=== PATIENT | male | born 2000 | race Caucasian/White ===

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

== ENCOUNTER 2020-10-13 00:11 | Emergency (ER) | payer BC ==
--- NOTE | 2020-10-13 00:46 | EDM.PDOC ---
ED HPI GENERAL MEDICAL PROBLEM - General Chief Complaint: Abdominal Pain Stated Complaint: UPPER ABD PAIN Time Seen by Provider: 10/13/20 00:31 Source of Information: Reports: Patient History Limitations: Reports: No Limitations - History of Present Illness INITIAL COMMENTS - FREE TEXT/NARRATIVE: Malik is a 20-year-old male presenting to the ED for evaluation of acute onset of epigastric discomfort that started when he was laying in bed tonight. Patient reports that he has had a normal bowel movement today. He denies any fever, chills, nausea or vomiting, diarrhea or constipation. The patient did reportedly eat pizza today around 5 PM. The pain started when he was laying down tonight. He is not experience this pain before. He cannot really describe what the pain feels like but denies that it is sharp or stabbing or pressure sensation. Patient denies having any flatus. He has not eaten any new foods. Did drink chocolate milk tonight. He denies any use of peppermint, caffeine, alcohol, or spicy foods other than the pizza. He denies any strenuous activity. - Related Data Allergies Allergy/AdvReac Type Severity Reaction Status Date / Time No Known Allergies Allergy Verified 10/13/20 00:28 Home Meds: Home Meds NK [No Known Home Meds] 10/13/20 [History] Past Medical History Dermatologic History: Reports: Other (See Below) Other Dermatologic History: acne - Infectious Disease History Infectious Disease History: Reports: Mononucleosis - Past Surgical History HEENT Surgical History: Reports: Adenoidectomy, Tonsillectomy GI Surgical History: Reports: Hernia Repair/Other Social & Family History - Tobacco Use Tobacco Use Status *Q: Never Tobacco User - Caffeine Use Caffeine Use: Reports: Soda - Recreational Drug Use Recreational Drug Use: No ED ROS GENERAL - Review of Systems Review Of Systems: See Below Constitutional: Reports: No Symptoms HEENT: Reports: No Symptoms Respiratory: Reports: No Symptoms Cardiovascular: Reports: No Symptoms Endocrine: Reports: No Symptoms GI/Abdominal: Reports: Abdominal Pain (Epigastric pain) : Reports: No Symptoms Musculoskeletal: Reports: No Symptoms Skin: Reports: No Symptoms Neurological: Reports: No Symptoms Psychiatric: Reports: No Symptoms Hematologic/Lymphatic: Reports: No Symptoms Immunologic: Reports: No Symptoms ED EXAM, GI/ABD - Physical Exam Exam: See Below Exam Limited By: No Limitations General Appearance: Alert, No Apparent Distress Throat/Mouth: Normal Inspection, Normal Oropharynx, Normal Voice, No Airway Compromise Head: Atraumatic, Normocephalic Neck: Normal Inspection, Supple Respiratory/Chest: No Respiratory Distress, Lungs Clear, Normal Breath Sounds Cardiovascular: Normal Peripheral Pulses, Regular Rate, Rhythm, No Murmur GI/Abdominal Exam: Normal Bowel Sounds, Soft, Tender Extremities: Normal Inspection, Normal Range of Motion, Normal Capillary Refill Neurological: Alert, Oriented, Normal Cognition, No Motor/Sensory Deficits Psychiatric: Normal Affect, Normal Mood Skin Exam: Warm, Dry, Intact, Normal Color Lymphatic: No Adenopathy Course - Vital Signs Last Recorded V/S: Last Vital Signs Temp 36.6 C 10/13/20 00:31 Pulse 57 L 10/13/20 00:31 Resp 15 10/13/20 00:31 BP 126/77 10/13/20 00:31 Pulse Ox 100 10/13/20 00:31 - Orders/Labs/Meds Orders: Active Orders 24 hr Category Date Time Status Abdomen 2V AP Flat Upright [CR] Stat Exams 10/13/20 00:39 Taken LACTIC ACID [CHEM] Stat Lab 10/13/20 00:51 Received Labs: Laboratory Tests 10/13/20 10/13/20 Range/Units 00:51 00:51 WBC 9.1 (4.5-11.0) K/uL RBC 5.37 (4.30-5.90) M/uL Hgb 15.1 H (12.0-15.0) g/dL Hct 44.0 (40.0-54.0) % MCV 82 (80-98) fL MCH 28 (27-31) pg MCHC 34 (32-36) % Plt Count 245 (150-400) K/uL Neut % (Auto) 66.8 H (36-66) % Lymph % (Auto) 22.3 L (24-44) % [place] % (Auto) 8.2 H (2-6) % Eos % (Auto) 2.2 (2-4) % Baso % (Auto) 0.5 (0-1) % Sodium 144 (140-148) mmol/L Potassium 4.1 (3.6-5.2) mmol/L Chloride 107 (100-108) mmol/L Carbon Dioxide 30 (21-32) mmol/L Anion Gap 6.9 (5.0-14.0) mmol/L BUN 22 H (7-18) mg/dL Creatinine 1.2 (0.8-1.3) mg/dL Est Cr Clr Drug Dosing 112.14 mL/min Estimated GFR (MDRD) > 60 (>60) Glucose 100 (74-106) mg/dL Calcium 8.5 (8.5-10.1) mg/dL Total Bilirubin 0.4 (0.2-1.0) mg/dL AST 19 (15-37) U/L ALT 25 (12-78) U/L Alkaline Phosphatase 72 (46-116) U/L Total Protein 6.3 L (6.4-8.2) g/dL Albumin 3.5 (3.4-5.0) g/dL Globulin 2.8 (2.3-3.5) g/dL Albumin/Globulin Ratio 1.2 (1.2-2.2) Lipase 80 (73-393) U/L - Radiology Interpretation Free Text/Narrative:: Reviewed the two-view x-ray of the abdomen showing a copious amount of colonic flatus and stool. There is no evidence for free air. There is no air-fluid levels. There is no evidence for obstruction. - Re-Assessments/Exams Free Text/Narrative Re-Assessment/Exam: 10/13/20 01:19 I reviewed the patient's labs including a CBC, comprehensive metabolic profile, and lipase. All labs are normal. 2 possible causes for the patient's epigastric discomfort are #1 copious amounts of flatus and stool and #2 gastric irritation secondary to acidic pizza. Neither of which are serious. The patient was given simethicone in the form of Maalox. At this time I believe he will be discharged home. I reassured him that there were no significant findings. Departure - Departure Time of Disposition: 01:21 Disposition: Home, Self-Care 01 Clinical Impression: Abdominal pain, acute, epigastric, Excessive flatus - Discharge Information Instructions: Abdominal Bloating, Abdominal Pain, Adult, [id number] Referrals: PCP,None [Primary Care Provider] - Forms: ED Department Discharge Care Plan Goals: Your work-up today has shown that you have an excessive amount of flatus (a colonic gas) that is causing some of your discomfort. We are going to give you Maalox which contains simethicone to help break up this flatus. The remainder of your work-up was unremarkable including labs and x-ray. Sepsis Event Note (ED) - Evaluation Sepsis Screening Result: No Definite Risk - Focused Exam Vital Signs: Vital Signs Temp Pulse Resp BP Pulse Ox 10/13/20 00:31 36.6 C 57 L 15 126/77 100 10/13/20 00:30 36.6 C 57 L 15 126/77 100 - Problem List & Annotations (1) Abdominal pain, acute, epigastric SNOMED Code(s): 84329517, 08807140 Code(s): R10.13 - EPIGASTRIC PAIN Status: Acute Priority: Medium Current Visit: Yes (2) Excessive flatus SNOMED Code(s): 39589085 Code(s): R14.3 - FLATULENCE Status: Acute Priority: Medium Current Visit: Yes - Problem List Review Problem List Initiated/Reviewed/Updated: Yes - My Orders Last 24 Hours: My Active Orders 10/13/20 00:39 Abdomen 2V AP Flat Upright [CR] Stat 10/13/20 00:51 LACTIC ACID [CHEM] Stat - Assessment/Plan Last 24 Hours: My Active Orders 10/13/20 00:39 Abdomen 2V AP Flat Upright [CR] Stat 10/13/20 00:51 LACTIC ACID [CHEM] Stat
[2020-10-13 00:56] VITALS: BP 126/77; PULSE 57
--- NOTE | 2020-10-13 01:19 | CRLCR ---
For Patients: As a result of the Century Cures Act, medical imaging exams and procedure reports are released immediately into your electronic medical record. You may view this report before your referring provider. If you have questions, please contact your health care provider. INDICATION: Epigastric pain TECHNIQUE: Abdomen/Pelvis radiograph 4 views COMPARISON: 07/28/2016 FINDINGS: Bowel: The bowel gas pattern is normal without evidence of bowel obstruction. Soft tissue: No evidence of pneumoperitoneum present. No suspicious calcifications noted. Bone: Unremarkable for age. IMPRESSION: 1. Unremarkable appearance of the visualized abdomen. Dictated by: Td Mathews MD @ 10/13/2020 01:17:51 (Electronically Signed)
[2020-10-13] MEDS ORDERED: Aluminum Hydroxide/Magnesium Hydroxide/Simethicone Susp 30 ML Cup PO STA (01:21)
== END 2020-10-13 01:30 | disposition home or self-care (01) ==
LOC: JP.ED 00:11
DX: R14.3 Flatulence (principal); R10.13 Epigastric pain
CPT/HCPCS: 36415; 74019; 80053; 83605; 83690; 85025; 99284; A9270